=== PATIENT | male | born 1995 | race African-American/Black ===

== ENCOUNTER 2025-05-08 06:06 | Day surgery (SDC) | payer OTHER ==
[~2025-05-08] VITALS: Ht 190.5 cm; Wt 97.0 kg
[2025-05-08] MEDS ORDERED: MIDAZOLAM INJ 2 MG/2 ML VIAL As Ordered ONE (06:56)
[2025-05-08] MEDS ORDERED: LIDOCAINE 2% 100 MG/5 ML SDV (FOR ANES.) As Ordered ONE (06:56)
[2025-05-08] MEDS ORDERED: ROCURONIUM BROMIDE 50MG/5ML VIAL As Ordered ONE (06:56)
[2025-05-08] MEDS: LR 1,000 ML IV SCH (07:01)
[2025-05-08] MEDS ORDERED: ROPIvacaine 0.5% 30ML VIAL PN ONE (07:10)
[2025-05-08] MEDS ORDERED: LACRILUBE (AKWA TEARS) OPHTH OINT 3.5 GM As Ordered ONE (07:10)
[2025-05-08] MEDS ORDERED: dexAMETHasone 10 MG/1 ML VIAL PRES.FREE PN ONE (07:10)
[2025-05-08] MEDS ORDERED: MIDAZOLAM INJ 2 MG/2 ML VIAL IV PRN (07:10)
[2025-05-08] MEDS: ceFAZolin SOD 2 GM IV ONCE IV ONE (07:45)
[2025-05-08] MEDS: TRANEXAMIC ACID 100 MG/ML 10ML VIAL IV ONE (08:05)
[2025-05-08] MEDS: TRANEXAMIC ACID 100 MG/ML 10ML VIAL As Ordered ONE (08:05)
[2025-05-08] MEDS ORDERED: dexAMETHasone 4 MG/ML 1 ML VIAL As Ordered ONE (08:31)
[2025-05-08] MEDS ORDERED: SUGAMMADEX SODIUM 500 MG/5 ML VIAL As Ordered ONE (08:31)
[2025-05-08] MEDS ORDERED: ACETAMINOPHEN 1000MG/100ML IV BAG As Ordered ONE (08:31)
[2025-05-08] MEDS ORDERED: ESMOLOL 100 MG/10 ML VIAL As Ordered ONE (08:31)
[2025-05-08] MEDS ORDERED: ONDANSETRON 4MG/2ML VIAL As Ordered ONE (08:31)
[2025-05-08] MEDS ORDERED: KETOROLAC 30 MG/ML 1 ML VIAL As Ordered ONE (08:31)
[2025-05-08] MEDS: EPINEPHrine INJ 1 MG/ML 1ML AMP As Ordered ONE (08:31)
[2025-05-08] MEDS: LIDOCAINE 1% SDV 5 ML VIAL PN ONE (08:51)
[2025-05-08] MEDS: VANCOMYCIN 1000MG/20ML VIAL As Ordered ONE (08:54)
[2025-05-08] MEDS: LIDOCAINE 1% SDV 30 ML VIAL As Ordered ONE (08:54)
[2025-05-08] MEDS ORDERED: MORPHINE 4 MG/ML 1 ML VIAL IV PRN (09:05)
[2025-05-08] MEDS ORDERED: ONDANSETRON 4MG/2ML VIAL IV PRN (09:25)
[2025-05-08] MEDS: HYDROMORPHONE HCL 0.5 MG/0.5 ML SYRINGE IV PRN (09:28)
[2025-05-08 10:50] VITALS: BP 127/79; TEMP 96.5; O2SAT 99
== END 2025-05-08 11:00 | disposition home or self-care (01) ==
LOC: M SDC 06:06
PROVIDERS: ATTEND Orthopaedic Surgery
DX: M75.22 Bicipital tendinitis, left shoulder (principal); M19.012 Primary osteoarthritis, left shoulder; Z91.018 Allergy to other foods
CPT/HCPCS: 23120; 29828; C1713; J0131; J0166; J0688; J1100; J1171; J1805; J1885; J2250; J2405; J3010; J3373